=== PATIENT | male | born 1995 | race Caucasian/White ===

== ENCOUNTER 2016-08-28 18:56 | Emergency (ER) | payer SELFPAY ==
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
[2016-08-28 20:14] VITALS: BP 132/68
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
== END 2016-08-28 20:12 | disposition home or self-care (01) ==
LOC: ED 18:56
DX: S16.1XXA Strain of muscle, fascia and tendon at neck level, initial encounter (principal); S60.222A Contusion of left hand, initial encounter; V87.7XXA Person injured in collision between other specified motor vehicles (traffic), initial encounter; Y93.9 Activity, unspecified; Y99.9 Unspecified external cause status
CPT/HCPCS: 72040; 73130; 99283

== ENCOUNTER 2017-03-29 20:20 | Emergency (ER) | payer SELFPAY ==
[2017-03-29] MEDS: Lidocaine 2% 20ml Vial IP ONE (21:30)
[2017-03-29] MEDS: DIPH,PERTUSS(ACELL),TET VAC/PF 0.5 ML DISP.SYRIN IM ONE (22:07)
--- NOTE | 2017-03-29 22:23 | Diagnostic Imaging Report ---
JORGE LUIS TIMMONS [facility] [id number] [facility].[address] [id number] Report Submission Date: Mar 29, 2017 9:05:25 PM CDT Patient Study Name: CEM NIX Date: Mar 29, 2017 8:52:31 PM CDT Modality Type: CR Gender: M Description: UPPER EXTREMITY : 89 Institution: [facility] Physician: JORGE LUIS TIMMONS Right 4th digit 3 views History: Ring finger laceration Findings: The right 4th digit is intact without fracture, dislocation, or radiopaque foreign body. Electronically signed on Mar 29, 2017 9:05:25 PM CDT by: Victor Hugo BRANHAM
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
[2017-03-29] MEDS: TRIPLE ANTIBIOTIC OINTMENT PAC 1 PACKET TOP ONE (23:22)
[2017-03-30 03:38] VITALS: BP 136/88
== END 2017-03-29 22:37 | disposition home or self-care (01) ==
LOC: ED 20:20
DX: S61.210A Laceration without foreign body of right index finger without damage to nail, initial encounter (principal); X58.XXXA Exposure to other specified factors, initial encounter; Y93.9 Activity, unspecified; Y99.9 Unspecified external cause status
CPT/HCPCS: 12001; 73140; 90471; 90715; 99283